=== PATIENT | male | born 1970 | race Caucasian/White ===

== ENCOUNTER 2021-07-09 20:51 | Emergency (ER) | payer OTHER ==
[~2021-07-09] VITALS: Ht 167.6 cm; Wt 73.0 kg
[2021-07-09 21:01] VITALS: BP 176/104
[2021-07-09] MEDS ORDERED: ACET-2708 MT (21:38)
[2021-07-09] MEDS ORDERED: ACETAMINOPHEN 500MG TABLET PO ONE (21:45)
== END 2021-07-09 22:09 | disposition home or self-care (01) ==
LOC: ER 20:51
DX: S06.0X0A Concussion without loss of consciousness, initial encounter (principal); Z98.890 Other specified postprocedural states; Z87.828 Personal history of other (healed) physical injury and trauma; W22.8XXA Striking against or struck by other objects, initial encounter; Y93.89 Activity, other specified; Y92.810 Car as the place of occurrence of the external cause
CPT/HCPCS: 99282